=== PATIENT | female | born 1980 | race Caucasian/White ===

== ENCOUNTER 2017-09-22 15:09 | Inpatient (IN) | payer OTHER ==
[2017-09-22] MEDS: DICYCLOMINE INJ 20MG/2ML (J0500) IM (16:00)
[2017-09-22 16:25] LABS: C REACTIVE PROTEIN QUANTITATIV 2.75 MG/DL (0.00-0.30); HCG, SERUM QUANTITATIVE < 1.0 MIU/ML
[2017-09-22 16:25] LABS: AMYLASE 314 U/L (25-115)
[2017-09-22 16:26] LABS: BASO % 0.3 % (0.0-1.0); EOS # 0.1 10^3/uL (0.0-0.50); EOS % 0.7 % (0.0-3.0); HEMOGLOBIN 16.7 g/dl (12.0-15.5); IMMATURE GRANULOCYTE % 0.1 % (0-3.0); LYMPH # 0.8 10^3/uL (1.5-4.5); LYMPH % 11.2 % (24.0-44.0); MEAN CORPUSCULAR HEMOGLOBIN 31.3 pg (27.0-33.0); MEAN CORPUSCULAR HGB CONC 34.8 g/dl (32.0-36.5); MEAN CORPUSCULAR VOLUME 90.1 fl (80.0-96.0); MONO # 0.7 10^3/uL (0.0-0.8); NEUTROPHILS # 5.3 10^3/uL (1.8-7.7); NEUTROPHILS % 77.7 % (36.0-66.0); PLATELET COUNT, AUTOMATED 195 10^3/uL (150-450); RED BLOOD COUNT 5.33 10^6/uL (4.00-5.40); RED CELL DISTRIBUTION WIDTH 11.9 % (11.5-14.5); WHITE BLOOD COUNT 6.8 10^3/uL (4.0-10.0)
[2017-09-22 16:27] LABS: ALBUMIN 4.5 GM/DL (3.2-5.2); ALKALINE PHOSPHATASE 93 U/L (45-117); ALT/SGPT 35 U/L (12-78); AST/SGOT 50 U/L (7-37); BILIRUBIN,TOTAL 0.9 MG/DL (0.2-1.0); BLOOD UREA NITROGEN 20 MG/DL (7-18); CALCIUM LEVEL 8.7 MG/DL (8.5-10.1); CARBON DIOXIDE LEVEL 25 MEQ/L (21-32); CHLORIDE LEVEL 105 MEQ/L (98-107); CK-MB VALUE MASS < 1.0 NG/ML (<3.6); CPK CREATINE PHOSPHOKINASE 63 U/L (26-192); CREATININE FOR GFR 1.02 MG/DL (0.55-1.30); GLUCOSE, FASTING 109 MG/DL (70-100); LIPASE 9942 U/L (73-393); POTASSIUM SERUM 3.7 MEQ/L (3.5-5.1); SODIUM LEVEL 139 MEQ/L (136-145); TOTAL PROTEIN 8.2 GM/DL (6.4-8.2); TROPONIN I < 0.02 NG/ML (< 0.10)
[2017-09-22 16:40] LABS: ALBUMIN/GLOBULIN RATIO 1.22 (1.00-1.93); ANION GAP 9 MEQ/L (8-16); MB/CK RELATIVE INDEX 1.59 (< OR =4)
[2017-09-22] MEDS: KETOROLAC 30 MG/ML VIAL (J1885) IV (16:47)
[2017-09-22] MEDS: NS 1,000 ML IV ×2 (16:48→17:45)
[2017-09-22] MEDS: GI COCKTAIL 50ML BTL(HYOSCYAMINE/MAALOX/LIDOCAINE VISCOUS)(1:3:1) PO (16:49)
[2017-09-22] MEDS: METOCLOPRAMIDE INJ 10MG/2ML VIAL (J2765) IV (16:49)
[2017-09-22 17:14] LABS: LACTIC ACID SEPSIS PROTOCOL 1.9 MMOL/L (0.4-2.0)
[2017-09-22] MEDS ORDERED: NS 1,000 ML IV (17:45)
[2017-09-22] MEDS ORDERED: MORPHINE 4 MG/ML 1ML VIAL/SYRINGE (J2270) IV (18:15)
[2017-09-22] MEDS ORDERED: ONDANSETRON 4MG/2ML VIAL (J2405) IV (18:15)
[2017-09-22] MEDS ORDERED: LEUPROLIDE IM (18:15)
[2017-09-22] MEDS: LR 1,000 ML IV ×2 (20:50→21:18)
[2017-09-22] MEDS: GABAPENTIN 400 MG CAP PO (21:18)
[2017-09-23] MEDS: LR 1,000 ML IV ×6 (01:15→20:54)
[2017-09-23 06:02] LABS: EOS # 0.1 10^3/uL (0.0-0.50); EOS % 3.8 % (0.0-3.0); HEMATOCRIT 34.3 % (36.0-47.0); LYMPH # 1.2 10^3/uL (1.5-4.5); LYMPH % 42.1 % (24.0-44.0); MEAN CORPUSCULAR HEMOGLOBIN 31.2 pg (27.0-33.0); MEAN CORPUSCULAR HGB CONC 34.4 g/dl (32.0-36.5); MEAN CORPUSCULAR VOLUME 90.7 fl (80.0-96.0); MONO # 0.5 10^3/uL (0.0-0.8); MONO % 16.8 % (0.0-5.0); NEUTROPHILS # 1.1 10^3/uL (1.8-7.7); NEUTROPHILS % 37.3 % (36.0-66.0); PLATELET COUNT, AUTOMATED 107 10^3/uL (150-450); RED BLOOD COUNT 3.78 10^6/uL (4.00-5.40); WHITE BLOOD COUNT 2.9 10^3/uL (4.0-10.0)
[2017-09-23 06:09] LABS: HEMOGLOBIN 11.8 g/dl (12.0-15.5)
[2017-09-23 06:26] LABS: ALBUMIN 2.9 GM/DL (3.2-5.2); ALBUMIN/GLOBULIN RATIO 1.16 (1.00-1.93); ALKALINE PHOSPHATASE 147 U/L (45-117); ALT/SGPT 419 U/L (12-78); ANION GAP 7 MEQ/L (8-16); AST/SGOT 432 U/L (7-37); BILIRUBIN,TOTAL 0.6 MG/DL (0.2-1.0); BLOOD UREA NITROGEN 15 MG/DL (7-18); CALCIUM LEVEL 7.6 MG/DL (8.5-10.1); CARBON DIOXIDE LEVEL 26 MEQ/L (21-32); CHLORIDE LEVEL 112 MEQ/L (98-107); CREATININE FOR GFR 0.76 MG/DL (0.55-1.30); GLOMERULAR FILTRATION RATE > 60.0 (>60); GLUCOSE, FASTING 96 MG/DL (70-100); LIPASE 4528 U/L (73-393); MAGNESIUM LEVEL 1.8 MG/DL (1.8-2.4); POTASSIUM SERUM 4.1 MEQ/L (3.5-5.1); SODIUM LEVEL 145 MEQ/L (136-145); TOTAL PROTEIN 5.4 GM/DL (6.4-8.2)
[2017-09-23 07:01] LABS: KETONE, URINE AUTO RFX NEGATIVE (NEGATIVE); LEUKOCYTE ESTERASE UR AUTO RFX NEGATIVE (NEGATIVE); MUCUS, URINE RFX SMALL (NEGATIVE); NITRITE, URINE AUTO RFX NEGATIVE (NEGATIVE); RBC, URINE AUTO RFX 5 /HPF (0-3); SPECIFIC GRAVITY UR AUTO RFX 1.017 (1.002-1.035); SQUAM EPITHELIAL CELL UR AURFX 0 /HPF (0-6); WBC, URINE AUTO RFX 4 /HPF (0-3)
[2017-09-23] MEDS: ENOXAPARIN 40 MG/0.4 ML SYRINGE (J1650) SC (09:00)
[2017-09-23 12:53] LABS: FIBRINOGEN 291 MG/DL (221-452); INR 1.12; PROTHROMBIN TIME 14.6 SECONDS (12.4-14.5)
[2017-09-23 12:55] LABS: D-DIMER QUANT 1387.3 ng/ml (<500)
[2017-09-23] MEDS: LORazepam 2 MG/ML VIAL (J2060) IV (18:37)
[2017-09-23] MEDS: GABAPENTIN 400 MG CAP PO (20:53)
[2017-09-24] MEDS: LR 1,000 ML IV ×2 (00:55→04:59)
[2017-09-24 06:08] LABS: BASO % 0.3 % (0.0-1.0); EOS # 0.1 10^3/uL (0.0-0.50); EOS % 4.5 % (0.0-3.0); HEMATOCRIT 32.6 % (36.0-47.0); HEMOGLOBIN 11.1 g/dl (12.0-15.5); LYMPH # 1.4 10^3/uL (1.5-4.5); MEAN CORPUSCULAR HEMOGLOBIN 31.4 pg (27.0-33.0); MEAN CORPUSCULAR VOLUME 92.1 fl (80.0-96.0); MONO # 0.4 10^3/uL (0.0-0.8); NEUTROPHILS % 33.2 % (36.0-66.0); RED BLOOD COUNT 3.54 10^6/uL (4.00-5.40); WHITE BLOOD COUNT 2.9 10^3/uL (4.0-10.0)
[2017-09-24 06:22] LABS: ALBUMIN 2.7 GM/DL (3.2-5.2); ALBUMIN/GLOBULIN RATIO 1.17 (1.00-1.93); ALKALINE PHOSPHATASE 126 U/L (45-117); ALT/SGPT 277 U/L (12-78); ANION GAP 6 MEQ/L (8-16); AST/SGOT 157 U/L (7-37); BILIRUBIN,TOTAL 0.3 MG/DL (0.2-1.0); BLOOD UREA NITROGEN 9 MG/DL (7-18); CALCIUM LEVEL 7.8 MG/DL (8.5-10.1); CARBON DIOXIDE LEVEL 28 MEQ/L (21-32); CHLORIDE LEVEL 113 MEQ/L (98-107); CREATININE FOR GFR 0.75 MG/DL (0.55-1.30); GLOMERULAR FILTRATION RATE > 60.0 (>60); GLUCOSE, FASTING 92 MG/DL (70-100); LIPASE 296 U/L (73-393); MAGNESIUM LEVEL 1.7 MG/DL (1.8-2.4); POTASSIUM SERUM 3.7 MEQ/L (3.5-5.1); SODIUM LEVEL 147 MEQ/L (136-145)
[2017-09-24 06:29] LABS: PLATELET COUNT, AUTOMATED 97 10^3/uL (150-450); POSITIVE DIFF POS FLAG
[2017-09-24 06:30] LABS: IMMATURE PLATELET FRACTION % 2.1 % (0.0-9.6)
[2017-09-24 07:40] LABS: REASON FOR REVIEW WBC/LEUKEMIA/BLAST; SLIDE REVIEW Report; SOURCE PERIPHERAL SMEAR
[2017-09-24] MEDS: EXEMESTANE 25 MG PO (07:53)
[2017-09-24] MEDS: MAGNESIUM OXIDE 400 MG TAB (MAG-OX) PO (07:53)
[2017-09-24] MEDS: ACETAMINOPHEN TAB 650MG DOSE (2X325MG) PO (07:54)
[2017-09-25 10:31] LABS: HEPATITIS B SURFACE ANTIGEN NEGATIVE (NEGATIVE)
[2017-09-25 10:54] LABS: HEPATITIS C VIRUS ABY INDEX 0.1 INDEX (<0.8)
[2017-09-25 10:55] LABS: HEPATITIS B CORE ANTIBODY IGM NEGATIVE (NEGATIVE)
[2017-09-25 10:57] LABS: HEPATITIS A ANTIBODY IGM NEGATIVE (NEGATIVE)
== END 2017-09-24 13:19 | disposition home or self-care (01) | DRG 282 ==
LOC: M ED 15:09 → M ED INP 18:08 → M MSPAV 21:14
DX: K85.20 Alcohol induced acute pancreatitis without necrosis or infection (principal); D61.818 Other pancytopenia; D84.9 Immunodeficiency, unspecified; E83.42 Hypomagnesemia; K75.9 Inflammatory liver disease, unspecified; Z85.3 Personal history of malignant neoplasm of breast; Z79.811 Long term (current) use of aromatase inhibitors; Z79.899 Other long term (current) drug therapy; Z90.10 Acquired absence of unspecified breast and nipple; Z90.49 Acquired absence of other specified parts of digestive tract